=== PATIENT | male | born 1970 | race Asian ===

== ENCOUNTER 2017-05-10 01:38 | Inpatient (IN) | payer MEDICAID ==
[~2017-05-10] VITALS: Ht 170.2 cm; Wt 75.6 kg
[2017-05-10 02:15] LABS: BASOPHILS # (AUTO) 0.02 K/uL (0.00-0.20); BASOPHILS % (AUTO) 0.2 % (0.0-2.0); EOSINOPHILS # (AUTO) 0.32 K/uL (0.00-0.70); EOSINOPHILS % (AUTO) 3.29 % (1.0-6.0); HEMATOCRIT 44.9 % (41-53); HEMOGLOBIN 14.3 g/dL (13.5-17.5); LYMPHOCYTES # (AUTO) 1.3 K/uL (1.0-4.8); LYMPHOCYTES % (AUTO) 13.2 % (22.0-44.0); MEAN CORPUSCULAR HEMOGLOBIN 21.6 pg (26.0-34.0); MEAN CORPUSCULAR HGB CONC 31.9 G/dL (31.0-37.0); MEAN CORPUSCULAR VOLUME 68 fL (80-100); MONOCYTES # (AUTO) 0.6 K/uL (0.1-1.0); MONOCYTES % (AUTO) 5.7 % (2.0-9.0); NEUTROPHILS # (AUTO) 7.6 K/uL (1.8-7.7); NEUTROPHILS % (AUTO) 77.6 % (40.0-70.0); PLATELET COUNT (AUTO) 247 K/uL (150-450); RED BLOOD CELL COUNT(AUTO) 6.65 MIL/uL (4.50-5.90); RED CELL DISTRIBUTION WIDTH 20.7 % (11.5-14.5); WHITE BLOOD COUNT (AUTO) 9.8 K/uL (4.5-11.0)
[2017-05-10] MEDS ORDERED: NITROGLYCERIN 2% (1 GM=INCH) PACKET TP ONE (02:15)
[2017-05-10] MEDS ORDERED: NITROGLYCERIN 0.4 MG SUBLINGUAL TABLET #25 SL ONE (02:15)
[2017-05-10] MEDS ORDERED: IOVERSOL 350 MG/ML 100 ML VIAL ONE (02:22)
[2017-05-10] MEDS ORDERED: SODIUM CHLORIDE 0.9% 100 ML ONE (02:22)
[2017-05-10 02:24] LABS: INR 1.2 (0.9-1.1)
[2017-05-10 02:29] LABS: ANION GAP 15 mmol/L (8-16); CALCIUM, TOTAL 8.2 mg/dL (8.8-10.5); CARBON DIOXIDE 20 mmol/L (22-29); CHLORIDE 103 mmol/L (98-107); GLOMERULAR FILTR. RATE CALC > 60 mL/min (>60); POTASSIUM 3.6 mmol/L (3.5-5.1); SODIUM SERUM 138 mmol/L (136-145); UREA NITROGEN, BLOOD 13 mg/dL (7-18)
[2017-05-10 02:31] LABS: B-TYPE NATRIURETIC PEPTIDE 1170 pg/mL (0-100)
[2017-05-10 02:41] LABS: RBC MORPHOLOGY COMMENT ABNORMAL RBC MORPH
[2017-05-10 02:52] LABS: ALANINE AMINOTRANSFERASE 62 U/L (12-78); ALBUMIN 3.2 g/dL (3.4-5.0); ASPARTATE AMINOTRANSFERASE 48 U/L (15-37); BILIRUBIN,TOTAL 2.9 mg/dL (0.1-1.0); CREATINE KINASE MB 5.7 ng/mL (0-5); CREATINE KINASE, TOTAL 243 U/L (39-308); TOTAL PROTEIN, SERUM 6.1 g/dL (6.4-8.2)
[2017-05-10] MEDS ORDERED: NITROGLYCERIN 50 MG/D5% WATER 250 ML IV STA (03:07)
[2017-05-10] MEDS ORDERED: ASPIRIN 325 MG TABLET PO ONE (03:15)
[2017-05-10] MEDS ORDERED: ACETAMINOPHEN 325 MG TABLET PO PRN ×2 (04:00→06:30)
[2017-05-10] MEDS ORDERED: FUROSEMIDE 40 MG/4 ML VIAL IVP ONE (04:00)
[2017-05-10] MEDS ORDERED: 0.9% SODIUM CHLORIDE 10 ML SYRINGE IVP PRN (04:00)
[2017-05-10] MEDS ORDERED: ONDANSETRON HCL 4 MG/2 ML VIAL IVP PRN ×2 (04:00→06:30)
[2017-05-10 04:19] LABS: APPEARANCE,URINE CLEAR (CLEAR); GLUCOSE, URINE (UA) NEGATIVE (NEGATIVE); KETONES,URINE NEGATIVE (NEGATIVE); LEUKOCYTE ESTERASE ,URINE SMALL (NEGATIVE); OCCULT BLOOD,URINE NEGATIVE (NEGATIVE); PROTEIN,URINE POS 1+ (NEGATIVE)
[2017-05-10 04:20] LABS: ADD UA MICROSCOPIC YES
[2017-05-10 04:33] LABS: RBC,URINE 0-2 /HPF (0-2); SQUAMOUS EPITHELIAL CELL,UR Few /LPF (None Seen)
[2017-05-10 04:34] LABS: HYALINE CASTS, URINE 0-2 /LPF (None Seen)
[2017-05-10] MEDS ORDERED: ENALAPRILAT DIHYDRATE 1.25 MG/ML VIAL IVP ONE (05:45)
[2017-05-10] MEDS ORDERED: HydrALAZINE HCL 20 MG/ML VIAL IVP ONE (05:45)
[2017-05-10] MEDS ORDERED: BISACODYL 10 MG RECTAL RECTAL SUPPOSITORY PR PRN (06:30)
[2017-05-10] MEDS ORDERED: HydrALAZINE HCL 20 MG/ML VIAL IVP PRN (06:30)
[2017-05-10] MEDS ORDERED: MORPHINE SULFATE 2 MG/ML SYRINGE IVP PRN (06:30)
[2017-05-10] MEDS ORDERED: MAGNESIUM HYDROXIDE SUSPENSION 30 ML UDCUP PO PRN (06:30)
[2017-05-10] MEDS ORDERED: ZOLPIDEM TARTRATE 5 MG TABLET PO PRN (06:30)
[2017-05-10] MEDS ORDERED: HEPARIN SODIUM,PORCINE 5,000 UNITS/ML VIAL SQ SCH (08:00)
[2017-05-10] MEDS: DOCUSATE SODIUM 100 MG CAPSULE PO SCH ×2 (09:00→21:30)
[2017-05-10] MEDS ORDERED: LISINOPRIL 5 MG TABLET PO SCH (09:00)
[2017-05-10] MEDS ORDERED: CARVEDILOL 6.25 MG TABLET PO SCH (09:00)
[2017-05-10 09:58] VITALS: BP 159/115
[2017-05-10] MEDS ORDERED: LISINOPRIL 10 MG TABLET PO SCH ×2 (10:57→21:00)
[2017-05-10] MEDS: PANTOPRAZOLE SODIUM 40 MG DR TABLET PO SCH (11:05)
[2017-05-10] MEDS: ASPIRIN 81 MG EC TABLET PO SCH (11:06)
[2017-05-10 11:14] VITALS: BP 151/92
[2017-05-10] MEDS ORDERED: PNEUMOCOCCAL VACCINE POLYVALENT 0.5 ML VIAL [PPSV23] IM ONE (13:00)
[2017-05-10 15:20] VITALS: BP 133/89
[2017-05-10] MEDS ORDERED: HEPARIN SODIUM,PORCINE 5,000 UNITS/ML VIAL IVP ONE (15:30)
[2017-05-10] MEDS ORDERED: HEPARIN SODIUM,PORCINE 5,000 UNITS/ML VIAL IVP PRN ×2 (15:30)
[2017-05-10] MEDS ORDERED: CARVEDILOL 6.25 MG TABLET PO ONE (15:30)
[2017-05-10 16:09] LABS: INR 1.3 (0.9-1.1); PROTHROMBIN TIME 13.2 SEC (9.4-11.6)
[2017-05-10] MEDS: HEPARIN SODIUM 25000 UNITS/D5W 250 ML IV PRN (17:12)
[2017-05-10 19:15] VITALS: BP 120/87
[2017-05-10] MEDS ORDERED: WARFARIN SODIUM 3 MG TABLET PO ONE (19:30)
[2017-05-10] MEDS ORDERED: FUROSEMIDE 40 MG/4 ML VIAL IVP SCH (21:00)
[2017-05-10] MEDS ORDERED: CARVEDILOL 12.5 MG TABLET PO SCH (21:00)
[2017-05-10] MEDS: FUROSEMIDE 20 MG/2 ML VIAL IVP SCH (21:30)
[2017-05-10 23:24] VITALS: BP 119/69
[2017-05-11] MEDS: HEPARIN SODIUM 25000 UNITS/D5W 250 ML IV PRN ×2 (00:06→18:35)
[2017-05-11 04:41] VITALS: BP 120/77
[2017-05-11 07:30] VITALS: BP 142/98
[2017-05-11 07:33] LABS: BASOPHILS # (AUTO) 0.04 K/uL (0.00-0.20); BASOPHILS % (AUTO) 0.6 % (0.0-2.0); EOSINOPHILS # (AUTO) 0.49 K/uL (0.00-0.70); EOSINOPHILS % (AUTO) 6.34 % (1.0-6.0); HEMATOCRIT 40.6 % (41-53); HEMOGLOBIN 12.9 g/dL (13.5-17.5); LYMPHOCYTES # (AUTO) 1.3 K/uL (1.0-4.8); LYMPHOCYTES % (AUTO) 16.3 % (22.0-44.0); MEAN CORPUSCULAR HEMOGLOBIN 21.8 pg (26.0-34.0); MEAN CORPUSCULAR HGB CONC 31.9 G/dL (31.0-37.0); MEAN CORPUSCULAR VOLUME 68 fL (80-100); MONOCYTES # (AUTO) 0.8 K/uL (0.1-1.0); NEUTROPHILS # (AUTO) 5.2 K/uL (1.8-7.7); NEUTROPHILS % (AUTO) 66.8 % (40.0-70.0); PLATELET COUNT (AUTO) 188 K/uL (150-450); RED BLOOD CELL COUNT(AUTO) 5.94 MIL/uL (4.50-5.90); RED CELL DISTRIBUTION WIDTH 20.3 % (11.5-14.5); WHITE BLOOD COUNT (AUTO) 7.7 K/uL (4.5-11.0)
[2017-05-11 08:05] LABS: ALANINE AMINOTRANSFERASE 55 U/L (12-78); ALBUMIN 2.9 g/dL (3.4-5.0); ANION GAP 13 mmol/L (8-16); ASPARTATE AMINOTRANSFERASE 44 U/L (15-37); BILIRUBIN,TOTAL 2.3 mg/dL (0.1-1.0); CALCIUM, TOTAL 8.2 mg/dL (8.8-10.5); CARBON DIOXIDE 26 mmol/L (22-29); CHLORIDE 102 mmol/L (98-107); CREATININE 1.05 mg/dL (0.60-1.30); GLOMERULAR FILTR. RATE CALC > 60 mL/min (>60); SODIUM SERUM 141 mmol/L (136-145); TOTAL PROTEIN, SERUM 5.6 g/dL (6.4-8.2); UREA NITROGEN, BLOOD 11 mg/dL (7-18)
[2017-05-11 08:10] LABS: POTASSIUM 2.9 mmol/L (3.5-5.1)
[2017-05-11] MEDS: LISINOPRIL 10 MG TABLET PO SCH ×3 (08:18→10:16)
[2017-05-11] MEDS ORDERED: MAGNESIUM SULFATE 2 GM in DEXTROSE 5%-WATER 50 ML IV PRN (08:30)
[2017-05-11] MEDS ORDERED: MAGNESIUM SULFATE 4 GM/WATER 100 ML IV PRN (08:30)
[2017-05-11] MEDS ORDERED: MAGNESIUM OXIDE 400 MG TABLET PO PRN (08:30)
[2017-05-11 08:43] LABS: INR 1.2 (0.9-1.1); PROTHROMBIN TIME 12.2 SEC (9.4-11.6)
[2017-05-11] MEDS: FUROSEMIDE 20 MG/2 ML VIAL IVP SCH ×2 (09:00→21:45)
[2017-05-11] MEDS ORDERED: LISINOPRIL 10 MG TABLET PO SCH (09:00)
[2017-05-11] MEDS: POTASSIUM CHLORIDE 20 MEQ ER TABLET PO SCH ×2 (09:17→13:14)
[2017-05-11] MEDS: PANTOPRAZOLE SODIUM 40 MG DR TABLET PO SCH (09:17)
[2017-05-11] MEDS: CARVEDILOL 25 MG TABLET PO SCH ×2 (09:17→21:45)
[2017-05-11] MEDS: DOCUSATE SODIUM 100 MG CAPSULE PO SCH ×2 (09:17→21:45)
[2017-05-11] MEDS: ASPIRIN 81 MG EC TABLET PO SCH (09:17)
[2017-05-11] MEDS: SPIRONOLACTONE 25 MG TABLET PO SCH (09:18)
[2017-05-11] MEDS ORDERED: SODIUM CHLORIDE 0.9% 250 ML IV ONE (11:29)
[2017-05-11] MEDS: POTASSIUM CHL 10 MEQ/WATER 50 ML IV SCH ×2 (11:34→13:14)
[2017-05-11 11:55] VITALS: BP 120/76
[2017-05-11] MEDS: HYDROCODONE/ACETAMINOPHEN 5-325 MG TABLET PO PRN (11:55)
[2017-05-11 16:14] VITALS: BP 143/50
[2017-05-11] MEDS ORDERED: WARFARIN SODIUM 2 MG TABLET PO ONE (17:00)
[2017-05-11 21:20] VITALS: BP 125/98
[2017-05-12] VITALS (7 sets, daily range): BP systolic 127–162; BP diastolic 73–119
[2017-05-12 06:42] LABS: BASOPHILS # (AUTO) 0.01 K/uL (0.00-0.20); BASOPHILS % (AUTO) 0.2 % (0.0-2.0); EOSINOPHILS # (AUTO) 0.44 K/uL (0.00-0.70); EOSINOPHILS % (AUTO) 5.22 % (1.0-6.0); HEMATOCRIT 45.3 % (41-53); HEMOGLOBIN 14.1 g/dL (13.5-17.5); LYMPHOCYTES # (AUTO) 1.5 K/uL (1.0-4.8); LYMPHOCYTES % (AUTO) 17.6 % (22.0-44.0); MEAN CORPUSCULAR HEMOGLOBIN 21.6 pg (26.0-34.0); MEAN CORPUSCULAR HGB CONC 31.2 G/dL (31.0-37.0); MEAN CORPUSCULAR VOLUME 69 fL (80-100); MONOCYTES # (AUTO) 0.8 K/uL (0.1-1.0); MONOCYTES % (AUTO) 9.6 % (2.0-9.0); NEUTROPHILS # (AUTO) 5.7 K/uL (1.8-7.7); NEUTROPHILS % (AUTO) 67.4 % (40.0-70.0); PLATELET COUNT (AUTO) 210 K/uL (150-450); RED BLOOD CELL COUNT(AUTO) 6.55 MIL/uL (4.50-5.90); RED CELL DISTRIBUTION WIDTH 20.1 % (11.5-14.5); WHITE BLOOD COUNT (AUTO) 8.5 K/uL (4.5-11.0)
[2017-05-12 07:07] LABS: INR 1.5 (0.9-1.1); PROTHROMBIN TIME 15.4 SEC (9.4-11.6)
[2017-05-12 07:25] LABS: ALANINE AMINOTRANSFERASE 60 U/L (12-78); ANION GAP 11 mmol/L (8-16); ASPARTATE AMINOTRANSFERASE 48 U/L (15-37); BILIRUBIN,TOTAL 2.1 mg/dL (0.1-1.0); CALCIUM, TOTAL 8.7 mg/dL (8.8-10.5); CARBON DIOXIDE 26 mmol/L (22-29); CHLORIDE 104 mmol/L (98-107); CREATININE 1.25 mg/dL (0.60-1.30); GLOMERULAR FILTR. RATE CALC > 60 mL/min (>60); POTASSIUM 3.7 mmol/L (3.5-5.1); SODIUM SERUM 141 mmol/L (136-145); TOTAL PROTEIN, SERUM 6.1 g/dL (6.4-8.2); UREA NITROGEN, BLOOD 14 mg/dL (7-18)
[2017-05-12] MEDS ORDERED: LORazepam 2 MG/ML VIAL IM PRN (08:45)
[2017-05-12] MEDS: DOCUSATE SODIUM 100 MG CAPSULE PO SCH ×2 (09:00→21:38)
[2017-05-12] MEDS: PANTOPRAZOLE SODIUM 40 MG DR TABLET PO SCH (09:00)
[2017-05-12] MEDS: LISINOPRIL 10 MG TABLET PO SCH ×2 (09:36→21:39)
[2017-05-12] MEDS: ASPIRIN 81 MG EC TABLET PO SCH (09:36)
[2017-05-12] MEDS: CARVEDILOL 25 MG TABLET PO SCH ×2 (09:37→21:38)
[2017-05-12] MEDS: SPIRONOLACTONE 25 MG TABLET PO SCH ×2 (09:39→10:03)
[2017-05-12 09:54] LABS: RBC MORPHOLOGY COMMENT ABNORMAL RBC MORPH
[2017-05-12] MEDS: FUROSEMIDE 20 MG/2 ML VIAL IVP SCH ×2 (11:52→21:38)
[2017-05-12] MEDS: HEPARIN SODIUM 25000 UNITS/D5W 250 ML IV PRN ×2 (14:07→22:11)
[2017-05-12] MEDS ORDERED: WARFARIN SODIUM 5 MG TABLET PO ONE (17:00)
[2017-05-12] MEDS: HYDROCODONE/ACETAMINOPHEN 5-325 MG TABLET PO PRN (23:49)
[2017-05-13 00:08] VITALS: BP 122/82
[2017-05-13 04:29] VITALS: BP 120/70
[2017-05-13 05:40] LABS: BASOPHILS # (AUTO) 0.01 K/uL (0.00-0.20); BASOPHILS % (AUTO) 0.1 % (0.0-2.0); EOSINOPHILS # (AUTO) 0.37 K/uL (0.00-0.70); HEMATOCRIT 42.1 % (41-53); HEMOGLOBIN 13.2 g/dL (13.5-17.5); LYMPHOCYTES # (AUTO) 0.8 K/uL (1.0-4.8); LYMPHOCYTES % (AUTO) 8.1 % (22.0-44.0); MEAN CORPUSCULAR HEMOGLOBIN 21.9 pg (26.0-34.0); MEAN CORPUSCULAR HGB CONC 31.4 G/dL (31.0-37.0); MEAN CORPUSCULAR VOLUME 70 fL (80-100); MONOCYTES # (AUTO) 0.7 K/uL (0.1-1.0); MONOCYTES % (AUTO) 7.1 % (2.0-9.0); NEUTROPHILS # (AUTO) 7.8 K/uL (1.8-7.7); NEUTROPHILS % (AUTO) 80.8 % (40.0-70.0); PLATELET COUNT (AUTO) 176 K/uL (150-450); RED BLOOD CELL COUNT(AUTO) 6.02 MIL/uL (4.50-5.90); RED CELL DISTRIBUTION WIDTH 19.6 % (11.5-14.5); WHITE BLOOD COUNT (AUTO) 9.7 K/uL (4.5-11.0)
[2017-05-13 05:59] LABS: CALCIUM, TOTAL 8.2 mg/dL (8.8-10.5); CHLORIDE 104 mmol/L (98-107); INR 3.7 (0.9-1.1); POTASSIUM 3.5 mmol/L (3.5-5.1); PROTHROMBIN TIME 39.5 SEC (9.4-11.6); UREA NITROGEN, BLOOD 14 mg/dL (7-18)
[2017-05-13 06:16] LABS: ALANINE AMINOTRANSFERASE 59 U/L (12-78); ALBUMIN 2.8 g/dL (3.4-5.0); ANION GAP 13 mmol/L (8-16); ASPARTATE AMINOTRANSFERASE 57 U/L (15-37); BILIRUBIN,TOTAL 1.8 mg/dL (0.1-1.0); CARBON DIOXIDE 23 mmol/L (22-29); CREATININE 1.19 mg/dL (0.60-1.30); GLOMERULAR FILTR. RATE CALC > 60 mL/min (>60); SODIUM SERUM 140 mmol/L (136-145); TOTAL PROTEIN, SERUM 5.8 g/dL (6.4-8.2)
[2017-05-13] MEDS: HEPARIN SODIUM 25000 UNITS/D5W 250 ML IV PRN (06:26)
[2017-05-13 07:15] VITALS: BP 125/89
[2017-05-13] MEDS: ASPIRIN 81 MG EC TABLET PO SCH (08:18)
[2017-05-13] MEDS: FUROSEMIDE 20 MG/2 ML VIAL IVP SCH (08:18)
[2017-05-13] MEDS: PANTOPRAZOLE SODIUM 40 MG DR TABLET PO SCH (08:18)
[2017-05-13] MEDS: DOCUSATE SODIUM 100 MG CAPSULE PO SCH (08:18)
[2017-05-13] MEDS: CARVEDILOL 25 MG TABLET PO SCH ×2 (08:18→18:52)
[2017-05-13] MEDS: LISINOPRIL 10 MG TABLET PO SCH (08:18)
[2017-05-13] MEDS: SPIRONOLACTONE 25 MG TABLET PO SCH (08:18)
[2017-05-13] MEDS ORDERED: POTASSIUM CHLORIDE 20 MEQ ER TABLET PO ONE (09:00)
[2017-05-13] MEDS ORDERED: MAGNESIUM OXIDE 400 MG TABLET PO ONE ×2 (09:00)
[2017-05-13 11:07] VITALS: BP 109/63
[2017-05-13 11:11] LABS: RBC MORPHOLOGY COMMENT ABNORMAL RBC MORPH
[2017-05-13 15:27] VITALS: BP 112/81
[2017-05-13] MEDS ORDERED: LISI10TA7 PO (17:06)
[2017-05-13] MEDS ORDERED: SPIR25 PO ×2 (17:06→18:24)
[2017-05-13] MEDS ORDERED: ASPI-1093 PO (17:06)
[2017-05-13] MEDS ORDERED: CARV25 PO ×2 (17:06→18:23)
[2017-05-13] MEDS ORDERED: FURO20 PO ×3 (17:09→18:24)
[2017-05-13] MEDS ORDERED: WARF2.5 PO ×2 (17:14→18:25)
[2017-05-13] MEDS ORDERED: ASPI81 PO (18:22)
== END 2017-05-13 19:00 | disposition home or self-care (01) | DRG 194 ==
LOC: EMS 01:41 → ICU 04:41 → 5S 09:16 → 5N 05-11 19:00
PROVIDERS: ADMIT Internal Medicine; ATTEND Internal Medicine
DX: I11.0 Hypertensive heart disease with heart failure (principal); I47.2 Ventricular tachycardia; E44.0 Moderate protein-calorie malnutrition; I50.21 Acute systolic (congestive) heart failure; R74.0 Nonspecific elevation of levels of transaminase and lactic acid dehydrogenase [LDH]; I16.1 Hypertensive emergency; E87.6 Hypokalemia; D64.9 Anemia, unspecified; F10.21 Alcohol dependence, in remission; F17.210 Nicotine dependence, cigarettes, uncomplicated; F43.21 Adjustment disorder with depressed mood; Z91.19 Patient's noncompliance with other medical treatment and regimen; Z87.898 Personal history of other specified conditions; Z68.26 Body mass index [BMI] 26.0-26.9, adult
CPT/HCPCS: 71275; 80307; 83735; 84132; 84443; 93005; 93306; 96365; 96372; 96374; 96375; 99291; 99292; J0360; J1644; J1940; J2060; J3480; J3490; J7050

== ENCOUNTER 2017-05-25 11:24 | Emergency (ER) | payer MEDICAID ==
[~2017-05-25] VITALS: Ht 167.6 cm; Wt 70.5 kg
[~2017-05-25 11:24] MED LIST: ASPI-1182 PO; ASPI81 PO; CARV25 PO; FURO20 PO; LISI10TA7 PO; SPIR25 PO; WARF2.5 PO
[2017-05-25 11:25] VITALS: BP 162/109
== END 2017-05-25 13:49 | disposition left against medical advice (07) ==
LOC: EMS 11:25
DX: Z76.0 Encounter for issue of repeat prescription (principal); Z53.21 Procedure and treatment not carried out due to patient leaving prior to being seen by health care provider